=== PATIENT | female | born 1955 | race Caucasian/White ===

== ENCOUNTER 2017-02-15 11:28 | Day surgery (SDC) | payer BC, OTHER ==
[2017-02-15] MEDS ORDERED: LR 1,000 ML IV ONE (12:17)
[2017-02-15] MEDS ORDERED: LIDOCAINE 1% 2 ML INJ ID PRN (12:17)
[2017-02-15] MEDS ORDERED: ceFAZolin 2 GM/DEXTROSE 100 ML IV ONE (12:23)
--- NOTE | 2017-02-15 12:23 | PDHPUP ---
History & Physical Update H&P update statement: This history and physical update is based on an assessment of the patient which was completed after admission or registration (within 24 hours), but prior to the surgery/procedure. H&P changes: none
[2017-02-15] MEDS ORDERED: ROPIVACAINE HCL 20 MG/10 ML INJ EP ONE (12:34)
[2017-02-15] MEDS ORDERED: BACITRACIN 50,000 UNITS/10 ML SYR IRR ONE (12:34)
[2017-02-15] MEDS ORDERED: BUPIVACAINE 0.5% 30 ML SDV ONE (12:34)
[2017-02-15] MEDS ORDERED: DEXAMETHASONE 4 MG/ML VIAL ONE (12:34)
[2017-02-15] MEDS ORDERED: LIDOCAINE 2% 5 ML SDV ONE ×2 (12:34→14:37)
[2017-02-15] MEDS ORDERED: MIDAZOLAM 2 MG/2 ML VIAL ONE (12:43)
[2017-02-15] MEDS ORDERED: MIDAZOLAM 2 MG/2 ML VIAL IVP ONE (12:43)
--- NOTE | 2017-02-15 12:44 | PDANEPAE ---
ANE Past Medical History - Cardiovascular History Hx Hypertension: No Hx Arrhythmias: No Hx Chest Pain: No Hx Coronary Artery / Peripheral Vascular Disease: No Hx CHF / Valvular Disease: No Hx Palpitations: No - Pulmonary History Hx COPD: No Hx Asthma/Reactive Airway Disease: No Hx Recent Upper Respiratory Infection: No Hx Oxygen in Use at Home: No Hx Sleep Apnea: No Sleep Apnea Screening Result - Last Documented: Negative - Neurologic History Hx Cerebrovascular Accident: No Hx Seizures: No Hx Dementia: No - Endocrine History Hx Diabetes: No Hypothyroid: No Hyperthyroid: No Obesity: mild - Renal History Hx Renal Disorders: No - Liver History Hx Hepatic Disorders: No - Neurological & Psychiatric Hx Hx Neurological and Psychiatric Disorders: Yes Neurological / Psychiatric History Comment: ANXIETY, - Cancer History Hx Cancer: No - Congenital Disorder History Hx Congenital Disorders: No - GI History Hx Gastrointestinal Disorders: Yes Gastrointestinal History Comment: Reflux, hiatel hernia, esophagitis. pt very sensitve to narcotics, severe nausea. - Other Health History Other Health History: occational eczma - Chronic Pain History Chronic Pain: Yes (ARTHRITIS IN HIPS AND HANDS) - Surgical History Prior Surgeries: RIGHT HIP REPLACEMENT 2011. MULTIPLE HAND SURGERIES. ANE Review of Systems Review of Systems: - Exercise capacity METS (RN): 5 METS ANE Patient History - Allergies Allergies/Adverse Reactions: No Known Allergies Allergy (Verified 01/13/17 10:40) - Home Medications Home Medications: Aspirin 81mg (*) 01/13/17 [Last Taken Unknown] Fish Oil 1000 mg (*) 01/13/17 [Last Taken Unknown] Mucinex 01/13/17 [Last Taken Unknown] Multi-Vitamin Daily 01/13/17 [Last Taken Unknown] Xanax 01/13/17 [Last Taken Unknown] Zyrtec 01/13/17 [Last Taken Unknown] Omeprazole 02/14/17 [Last Taken Unknown] - Smoking Hx Smoking Status: Never smoked - Family Anes Hx Family Hx Anesthesia Complications: NONE ANE Labs/Vital Signs - Vital Signs Height: 154.94 cm Weight: 63.503 kg ANE Anesthesia Plan Anesthesia Plan: GA w LMA, MAC
[2017-02-15] MEDS ORDERED: fentaNYL 100 MCG/2 ML INJ ONE (13:08)
[2017-02-15] MEDS ORDERED: ROPIVACAINE HCL 150 MG/30 ML INJ ONE (13:10)
[2017-02-15] MEDS ORDERED: PROPOFOL/EMULSION 500 MG/50 ML BOTTLE IV ONE (13:10)
[2017-02-15] MEDS ORDERED: NALOXONE HCL 0.4 MG/ML INJ IVP PRN (14:29)
[2017-02-15] MEDS ORDERED: LR 500 ML IV PRN (14:29)
[2017-02-15] MEDS ORDERED: ONDANSETRON 4 MG/2 ML VIAL IVP PRN (14:29)
[2017-02-15] MEDS ORDERED: PROMETHAZINE HCL 25 MG/ML INJ IVP PRN (14:29)
[2017-02-15] MEDS ORDERED: fentaNYL 100 MCG/2 ML INJ IVP PRN (14:29)
[2017-02-15] MEDS ORDERED: DEXAMETHASONE 4 MG/ML VIAL IVP PRN (14:29)
[2017-02-15] MEDS ORDERED: PROPOFOL 200 MG/20 ML VIAL ONE (14:36)
--- NOTE | 2017-02-15 15:04 | POSTANESTH ---
Post Anesthetic Evaluation Cardiovascular Status: Normal, Stable Respiratory Status: Normal, Stable Level of Consciousness/Mental Status: Can Participate in Eval Pain Control: Adequate, Prn Tx Ordered Nausea/Vomiting Control: Adequate, Prn Tx Ordered Complications Possibly Related to Anesthesia: None Noted
--- NOTE | 2017-02-15 15:05 | POSTOPPROG ---
Post Op Note Date of Operation: 02/15/17 Surgeon: Nikia Walters Senior Technical Trainer: hedy walters Anesthesiologist: Av Rowland MD Pre-op Diagnosis: Hallux Rigidus right Post-op Diagnosis: hallux Rigidus right Indication: osteoarthritis , bone spur, jointpain Procedure: Distal tilt back osteotomy first metatarsal, screw fixation Findings: dorsal 50 % cartilage absent Inf/Abcess present in the surg proc area at time of surgery?: No Depth: Deep Incisional (Fascial) EBL: Minimal Complications: none Specimen(s): none
[2017-02-15 15:23] VITALS: TEMP 97.7
[2017-02-15 15:42] VITALS: PULSE 56
[2017-02-15 16:45] VITALS: BP 141/84; RESP 16; O2SAT 95
--- NOTE | 2017-02-16 04:15 | GOP ---
[f rep st] OPERATIVE REPORT DATE OF OPERATION: 02/15/2017 SURGEON: Nikia Martin DPM GM: Krystal Martin DPM ANESTHESIA: Light general/monitored anesthesia care. ANESTHESIOLOGIST: Jamil Rowland MD. PREOPERATIVE DIAGNOSIS: Hallux rigidus, right foot. POSTOPERATIVE DIAGNOSIS: Hallux rigidus, right foot. PROCEDURE PERFORMED: Removal of bone spur, distal 1st metatarsal osteotomy decompression type, tilt back with screw fixation utilizing Arthrex screws, right foot. FINDINGS: SPECIMENS: No specimens sent to pathology. In postoperative recovery, she was doing well. Her will be providing her transportation home . She is to follow up at our office in 2 days for wound check. ESTIMATED BLOOD LOSS: Less than 5 cc. No additional injectables. INDICATIONS: Hallux rigidus, grade 2-3, pain in the joint. Conservative treatment efforts have been exhausted and at this time patient elects to proceed with surgery. DESCRIPTION OF PROCEDURE: Patient was brought into the operating room, placed on the operating table in the supine position. Intravenous/light general anesthesia administered. A posterior tibial and peripheral nerve block was obtained utilizing 17 cc of a 1:1:1 mix of 1% lidocaine plain, 0.5% ropiva mago, and 0.5% Marcaine plain. The lower extremity was prepped and draped in the usual sterile marcelo er. After the limb had been elevated, it was exsanguinated with an Esmarch bandage and the ankle jaquan rniquet inflated to 230 mmHg, and the procedure was begun. Attention directed toward the dorsal aspect of the 1st metatarsophalangeal joint where a linear incis ion was created. Incision was carefully deepened with care of neurovascular structures, and clamp an d cauterize bleeders. Linear capsulotomy performed exposing the hypertrophied dorsal bony eminence, as well as the osteophytes along the dorsal base of the proximal phalanx. Degenerative joint disease was noted, dorsal 50% of the cartilage absent on the 1st metatarsal head, and approximately dorsal 4 0% absent on the base of the proximal phalanx. Central plantar cartilage intact. Utilizing rongeur and bur, bony prominences were resected and sites were smoothened until no sharp edges or prominences noted. Then utilizing a 3.35 K-wire, microdrilling was performed of the 1st metatarsal head in the area were cartilage was absent to promote subchondral bone bleeding. The wound was copiously irrigat ed with bacitracin irrigation solution. K-wire utilized as an axis guide. C-arm pictures were taken to verify alignment of the K-wire to use as a guide for osteotomy, which was then created with a saw and [place]rahan osteotomy guide. [place] distal plantar 1st metatarsal head distal to the level of the sesam oids, base of the osteotomy, dorsal and proximal, wedge of bone was removed entirely, 1st metatarsal head was tilted backward decompressing the joint, and then fixated with 2 headless Arthrex screws bot h 2.5 mm, both measuring 16 mm in length. Osteotomy was stable and congruent. Hallux range of motio n improved, no impingement. The wound was copiously irrigated with bacitracin irrigation solution. Capsular closure and deep closure achieved with 2-0 and 3-0 Vicryl. Tourniquet was released and a no rmal hyperemic response noted to all digits. Subcutaneous closure achieved with 4-0 Monocryl, and th e skin was closed with 4-0 Prolene in a horizontal mattress and simple interrupted suture manner. Dr gaudencio included Xeroform, 4 x 4's, Josesito, reinforced with tape and an [place]elo bandage. Patient tolerate d the procedure and anesthesia well, and left the operating room with vital signs stable and vascular status intact to all digits. There were no intraoperative complications. PROGNOSIS: Good. /[id number]/MODL
== END 2017-02-15 16:45 | disposition home or self-care (01) ==
LOC: FSGY 11:28
PROVIDERS: ATTEND Podiatrist
PROC: 0QBN0ZZ Excision of Right Metatarsal, Open Approach (ICD-10-PCS; principal; 2017-02-15 12:30)
PROC: 0QSN04Z Reposition Right Metatarsal with Internal Fixation Device, Open Approach (ICD-10-PCS; principal; 2017-02-15 12:30)
DX: M20.21 Hallux rigidus, right foot (principal); M77.41 Metatarsalgia, right foot; M19.071 Primary osteoarthritis, right ankle and foot
CPT/HCPCS: 28310; 73620; C1769; C1713; J0690; J1100; J2250; J2704; J2795; J3010